=== PATIENT | male | born 1935 | race Caucasian/White ===

== ENCOUNTER 2019-07-31 06:19 | Inpatient (IN) | payer MEDICARE, BC ==
--- NOTE | 2019-07-31 06:35 | ED ---
Neuro HPI <Selvin Negron - Last Filed: 07/31/19 08:20> - History of Present Illness Is the patient presenting with stroke symptoms?: Yes Last Known Well Date: 07/30/19 Last Known Well Time: 18:00 Onset/Timin -: hour(s) <Ashley Stewart - Last Filed: 07/31/19 09:49> - General Chief Complaint: Weakness Stated Complaint: Weakness Time Seen by Provider: 07/31/19 06:26 - History of Present Illness Initial Comments: 84yo male with history of atrial fibrillation, uncontrolled DM, HTN presenting today for cc of left leg weakness, patient states that yesterday patient around 7PM when he attempted to go out of the chair he felt his left leg was weak almost causing him to fall, patient admits to tingling in the leg that has since resolved. Patient does explain how he has neuropathy of the LE b/l and has been struggling wtih ambulation the past 6 months with b/l leg weakness. Patient states for the most part this has been equal. Patient denies falls/trauma. Does not take any anticoagulation therapy. Patient denies [place], vomiting, neck pain, chest pain, SOB, arm weakness, speech changes, new visual changes, diplopia, new sensation deficits, fevers. Patient appear well on arrival, no acute distress. He is AAOx4, alert, very responsive. (Ashley Stewart) - Related Data Home Medications: Home Medications Medication Instructions Recorded Confirmed Aspirin 81 mg PO DAILY 10/28/13 07/31/19 Glimepiride [Amaryl] 4 mg PO DAILY 10/28/13 07/31/19 Metoprolol Tartrate [Lopressor] 50 mg PO BID 10/28/13 07/31/19 Naproxen [Naprosyn] 500 mg PO Q12HR PRN 10/28/13 07/31/19 Quinapril HCl [Accupril] 40 mg PO DAILY 10/28/13 07/31/19 amLODIPine BESYLATE [Norvasc] 10 mg PO DAILY 10/28/13 07/31/19 Allergies/Adverse Reactions: Allergies Allergy/AdvReac Type Severity Reaction Status Date / Time Penicillins Allergy Anaphylaxis Verified 07/31/19 07:25 Review of Systems ROS Other: All systems not noted in ROS Statement are negative. <Selvin Negron - Last Filed: 07/31/19 08:20> ROS Other: All systems not noted in ROS Statement are negative. <Ashley Stewart - Last Filed: 07/31/19 09:49> ROS Statement: Those systems with pertinent positive or pertinent negative responses have been documented in the HPI. General Exam <Ashley Stewart - Last Filed: 07/31/19 09:49> - General Exam Comments Initial Comments: General: The patient is awake and alert, in no distress Eye: +3 mm pupils are equal, round and reactive to light, extra-ocular movements are intact. No nystagmus. There is normal conjunctiva bilaterally. No signs of icterus. Ears, nose, mouth and throat: There are moist mucous membranes and no oral lesions. Neck: The neck is supple, there is no tenderness or JVD. Cardiovascular: There is a regular rate and rhythm. No murmur, rub or gallop is appreciated. Respiratory: Lungs are clear to auscultation, respirations are non-labored, breath sounds are equal. No wheezes, stridor, rales, or rhonchi. Gastrointestinal: Soft, non-distended, non-tender abdomen without masses or organomegaly noted. There is no rebound or guarding present. Musculoskeletal: Normal ROM, no tenderness. Radial pulses equal bilaterally 2+. Neurological: A&O x 3. CN II-XII intact, memory intact to immediately, intermediate and fdc recall. Able to follow simple verbal. Able to name a common object. High quality, labial and lingual speech. Low quality posterior pharynx/larynx (ga) voice sounds. Able to express general knowledge (days in a week). No hemineglect or inattention noted. Finger agnosia (-) and spatially o riented. Light touch sensation present over the face, chest, abdomen, back, UE bilaterally, and LE bilaterally. Able to localize point during point localization b/l and extinction. No visible bulk atrophy, hypertrophy, fasciculations, or myoclonus of the UE or LE b/l. Full PROM in UE and LE b/l. Bilateral muscle strength 5/5 for the following muscles: deltoid, biceps, triceps, brachioradialis, wrist extensors/flexor, hip flexor, hip abductors/adductors, hamstrings, quadriceps, feet dorsiflexors/plantar flexors. Finger to nose, finger to the examiners finger, accurate b/l. Drift noted mild of the left LE. No nuchal rigidity. Skin: Skin is warm and dry and no rashes or lesions are noted. Psychiatric: Cooperative, appropriate mood & affect, normal judgment. (Ashley Stewart) Stroke MDM - Lab Data Result diagrams: 07/31/19 06:30 07/31/19 06:30 <Selvin Negron - Last Filed: 07/31/19 08:20> - Lab Data Result diagrams: 07/31/19 06:30 07/31/19 06:30 - NIH Stroke Scale 1a. Level of Consciousness: (0) alert 1b. LOC Questions: (0) answers correctly 1c. LOC Commands: (0) performs tasks correctly 2. Best Gaze: (0) normal 3. Visual: (0) no visual loss 4. Facial Palsy: (0) normal symmetrical movement 5a. Motor Arm Left: (0) no drift 5b. Motor Arm Right: (0) no drift 6a. Motor Leg Left: (1) drift 6b. Motor Leg Right: (0) no drift 7. Limb Ataxia: (0) absent 8. Sensory: (0) normal 9. Best Language: (0) no aphasia 10. Dysarthria: (0) normal 11. Extinction/Inattention: (0) no abnormality - Thrombolytic Inclusion/Exclusion Thrombolytic Exclusion Criteria: Symptom Onset > 4.5 Hours <Ashley Stewart - Last Filed: 07/31/19 09:49> - Lab Data Lab Results 07/31/19 07/31/19 07/31/19 Range/Units 06:30 06:30 06:30 WBC 9.6 (3.8-10.6) k/uL RBC 5.30 (4.30-5.90) m/uL Hgb 16.0 (13.0-17.5) gm/dL Hct 47.9 (39.0-53.0) % MCV 90.4 (80.0-100.0) fL MCH 30.3 (25.0-35.0) pg MCHC 33.5 (31.0-37.0) g/dL RDW 13.4 (11.5-15.5) % Plt Count 221 (150-450) k/uL Neutrophils % 76 % Lymphocytes % 14 % Monocytes % 6 % Eosinophils % 2 % Basophils % 0 % Neutrophils # 7.3 (1.3-7.7) k/uL Lymphocytes # 1.4 (1.0-4.8) k/uL Monocytes # 0.6 (0-1.0) k/uL Eosinophils # 0.2 (0-0.7) k/uL Basophils # 0.0 (0-0.2) k/uL PT 10.2 (9.0-12.0) sec INR 1.0 (<1.2) APTT 24.7 (22.0-30.0) sec Sodium 141 (137-145) mmol/L Potassium 3.9 (3.5-5.1) mmol/L Chloride 108 H (98-107) mmol/L Carbon Dioxide 22 (22-30) mmol/L Anion Gap 11 mmol/L BUN 20 (9-20) mg/dL Creatinine 0.89 (0.66-1.25) mg/dL Est GFR (CKD-EPI)AfAm 90 (>60 ml/min/1.73 sqM) Est GFR (CKD-EPI)NonAf 78 (>60 ml/min/1.73 sqM) Glucose 87 (74-99) mg/dL Calcium 9.4 (8.4-10.2) mg/dL Total Bilirubin 1.4 H (0.2-1.3) mg/dL AST 28 (17-59) U/L ALT 16 (4-49) U/L Alkaline Phosphatase 80 (38-126) U/L Troponin I (0.000-0.034) ng/mL Total Protein 7.1 (6.3-8.2) g/dL Albumin 4.0 (3.5-5.0) g/dL Urine Color Urine Appearance (Clear) Urine pH (5.0-8.0) Ur Specific [place] (1.001-1.035) Urine Protein (Negative) Urine Glucose (UA) (Negative) Urine Ketones (Negative) Urine Blood (Negative) Urine Nitrite (Negative) Urine Bilirubin (Negative) Urine Urobilinogen (<2.0) mg/dL Ur Leukocyte Esterase (Negative) 07/31/19 07/31/19 Range/Units 06:30 06:30 WBC (3.8-10.6) k/uL RBC (4.30-5.90) m/uL Hgb (13.0-17.5) gm/dL Hct (39.0-53.0) % MCV (80.0-100.0) fL MCH (25.0-35.0) pg MCHC (31.0-37.0) g/dL RDW (11.5-15.5) % Plt Count (150-450) k/uL Neutrophils % % Lymphocytes % % Monocytes % % Eosinophils % % Basophils % % Neutrophils # (1.3-7.7) k/uL Lymphocytes # (1.0-4.8) k/uL Monocytes # (0-1.0) k/uL Eosinophils # (0-0.7) k/uL Basophils # (0-0.2) k/uL PT (9.0-12.0) sec INR (<1.2) APTT (22.0-30.0) sec Sodium (137-145) mmol/L Potassium (3.5-5.1) mmol/L Chloride (98-107) mmol/L Carbon Dioxide (22-30) mmol/L Anion Gap mmol/L BUN (9-20) mg/dL Creatinine (0.66-1.25) mg/dL Est GFR (CKD-EPI)AfAm (>60 ml/min/1.73 sqM) Est GFR (CKD-EPI)NonAf (>60 ml/min/1.73 sqM) Glucose (74-99) mg/dL Calcium (8.4-10.2) mg/dL Total Bilirubin (0.2-1.3) mg/dL AST (17-59) U/L ALT (4-49) U/L Alkaline Phosphatase (38-126) U/L Troponin I <0.012 (0.000-0.034) ng/mL Total Protein (6.3-8.2) g/dL Albumin (3.5-5.0) g/dL Urine Color Light Yellow Urine Appearance Clear (Clear) Urine pH 5.0 (5.0-8.0) Ur Specific [place] 1.006 (1.001-1.035) Urine Protein Negative (Negative) Urine Glucose (UA) Negative (Negative) Urine Ketones Negative (Negative) Urine Blood Negative (Negative) Urine Nitrite Negative (Negative) Urine Bilirubin Negative (Negative) Urine Urobilinogen <2.0 (<2.0) mg/dL Ur Leukocyte Esterase Negative (Negative) - Medical Decision Making 84yo male presenting today for cc of leg weakness, slight leg left drift, resolved on repeat exam. NIH initially 1--> 0. 12 hours after onset patient presented. Not TPA candidate, discussed case [facility] interventional neurologist who recommended ASA, plavix, statin, MRI if CT (-). Spoke with Dr. Arrieta who felt he may have seen a slight abnormality of MCA. CTA ordered, which does not redemonstrate abnormality. Patient will be admitted for neurology evaluation, monitoring, medical management and MRI. Patient agreeable to admission. Dr. Negron agreeable to care plan. He spoke with Dr Saul admitting provider. Dr Vidal eJffery on consult. (Ashley Stewart) Ventricular rate 88bpm, QRS duration 82ms, QT/QTc 386/467 this is atrial fibrillation, No ST elevation or depression, Some nonspecific T wave, artifact noted. 07/31/19 07:19 (Ashley Stewart) Past Medical History Past Medical History: Diabetes Mellitus, Eye Disorder, Hypertension Additional Past Medical History / Comment(s): neuropathy History of Any Multi-Drug Resistant Organisms: None Reported Past Surgical History: No Surgical Hx Reported Past Psychological History: No Psychological Hx Reported Smoking Status: Never smoker Past Alcohol Use History: None Reported Past Drug Use History: None Reported <Ashley Stewart - Last Filed: 07/31/19 09:49> Course <Selvin Negron - Last Filed: 07/31/19 08:20> <Ashley Stewart - Last Filed: 07/31/19 09:49> Vital Signs 07/31/19 07/31/19 07/31/19 06:26 06:27 06:30 Temperature 98.2 F Pulse Rate 102 H Respiratory 18 Rate Blood Pressure 174/107 174/107 O2 Sat by Pulse 97 99 90 L Oximetry 07/31/19 07/31/19 07/31/19 06:40 06:42 06:50 Temperature 98.0 F Pulse Rate 82 84 Respiratory 18 18 Rate Blood Pressure 149/82 170/85 170/85 O2 Sat by Pulse 99 96 Oximetry 07/31/19 07/31/1920 07:00 07:10 07:30 Temperature Pulse Rate 76 74 Respiratory 18 11 L Rate Blood Pressure 170/85 149/88 O2 Sat by Pulse 99 97 Oximetry 07/31/19 07/31/19 07/31/19 07:40 07:50 08:00 Temperature Pulse Rate 76 73 81 Respiratory 8 L 10 L 10 L Rate Blood Pressure 133/80 136/87 136/87 O2 Sat by Pulse 98 98 95 Oximetry 07/31/19 07/31/19 07/31/19 08:10 08:13 08:20 Temperature Pulse Rate 80 80 73 Respiratory 10 L 18 4 L Rate Blood Pressure 142/81 141/83 128/84 O2 Sat by Pulse 98 99 97 Oximetry 07/31/19 07/31/19 07/31/19 08:30 08:40 08:50 Temperature Pulse Rate 74 80 78 Respiratory 3 L 14 6 L Rate Blood Pressure 128/84 132/87 147/113 O2 Sat by Pulse 93 L 99 98 Oximetry 07/31/19 07/31/19 09:00 09:10 Temperature Pulse Rate 82 80 Respiratory 17 24 Rate Blood Pressure 147/113 133/88 O2 Sat by Pulse 97 97 Oximetry - Reevaluation(s) Reevaluation #1: Spoke with Dr Schilling in regards to patient clinical presentation--he states if CT is without abnormality initiate treatment such as plavix, ASA, Lipitor and MRI. However these is possible subtle abnormality in the Right MCA. Spoke with Dr. Arrieta radiology and will order CTA for better evaluation. 07/31/19 06:54 (Ashley Stewart) Reevaluation #2: 07/31/19 08:21 PA supervision: I proceeded [id number]-yi-[id number] evaluation patient did present with neurological symptoms consistent with a stroke. Since resolved CAT scan showed no definite occlusion. A code stroke having called initially. Recommendations are for inpatient evaluation medications local neurological consultation. The case is discussed with Dr. Epperson (Selvin Negron) Disposition <Selvin Negron - Last Filed: 07/31/19 08:20> Is patient prescribed a controlled substance at d/c from ED?: No Time of Disposition: 08:16 Decision to Admit Reason: Admit from EC Decision Date: 07/31/19 Decision Time: 08:16 <Ashley Stewart - Last Filed: 07/31/19 09:49> Clinical Impression: TIA (transient ischemic attack), Left leg weakness, History of atrial fibrillation Disposition: ADMITTED IP TO THIS HOSP Condition: Stable
[2019-07-31 06:42] LABS: Basophils % (A) 0 %; Eosinophils # (A) 0.2 k/uL (0-0.7); Eosinophils % (A) 2 %; HCT 47.9 % (39.0-53.0); Lymphocytes # (A) 1.4 k/uL (1.0-4.8); Lymphocytes % (A) 14 %; MCH 30.3 pg (25.0-35.0); MCHC 33.5 g/dL (31.0-37.0); MCV 90.4 fL (80.0-100.0); Monocytes # (A) 0.6 k/uL (0-1.0); Monocytes % (A) 6 %; Neutrophils # (A) 7.3 k/uL (1.3-7.7); Neutrophils % (A) 76 %; Platelet Count 221 k/uL (150-450); RDW 13.4 % (11.5-15.5); WBC 9.6 k/uL (3.8-10.6)
[2019-07-31 06:43] LABS: Appearance,Urine Clear (Clear); Bilirubin,Urine Negative (Negative); Blood,Urine Negative (Negative); Color,Urine Light Yellow; Glucose,Urine (UA) Negative (Negative); Ketones,Urine Negative (Negative); Leukocyte Esterase,Urine Negative (Negative); Nitrite,Urine Negative (Negative); Protein,Urine Negative (Negative); Specific Gravity,Urine 1.006 (1.001-1.035); Urobilinogen,Urine <2.0 mg/dL (<2.0)
--- NOTE | 2019-07-31 06:49 | CT ---
EXAM: CT Head Without Intravenous Contrast CLINICAL HISTORY: ITS.REASON CT Reason: Neuro deficit, acute, stroke suspected TECHNIQUE: Axial computed tomography images of the head/brain without intravenous contrast. CTDI is 49.1 mGy and DLP is 1090.4 mGy-cm. This CT exam was performed using one or more of the following dose reduction techniques: automated exposure control, adjustment of the mA and/or kV according to patient size, and/or use of iterative reconstruction technique. Coronal and sagittal reformatted images were created and reviewed. COMPARISON: No relevant prior studies available. FINDINGS: Brain: Chronic small vessel ischemic change and global volume loss. No intracranial hemorrhage. No CT evident evolving territorial infarction. No mass effect or edema. Ventricles: Enlarged ventricles secondary to involution. Bones/joints: Unremarkable. No acute fracture. Soft tissues: Unremarkable. Vasculature: Some intracranial atherosclerosis is seen. Subtle density within the right proximal MCA, question atherosclerosis versus thrombus. Clinically correlate. Consider further evaluation with CT angiogram. Sinuses: Unremarkable as visualized. No acute sinusitis. Mastoid air cells: Unremarkable as visualized. No mastoid effusion. IMPRESSION: 1. Some intracranial atherosclerosis is seen. Subtle density within the right proximal MCA, question atherosclerosis versus thrombus. Clinically correlate. Consider further evaluation with CT angiogram. 2. Chronic small vessel ischemic change and global volume loss. No intracranial hemorrhage. No CT evident evolving territorial infarction. 3. Enlarged ventricles secondary to involution. <MYCVCSECTION> Communications: 07/31/19 06:53 Call Doctor Regarding Above results, called STEW Marie on 07/30 06:53 (-04:00)
[2019-07-31 06:50] LABS: Partial Thromboplastin Time 24.7 sec (22.0-30.0); Prothrombin Time 10.2 sec (9.0-12.0)
[2019-07-31 06:51] LABS: Calcium 9.4 mg/dL (8.4-10.2); Potassium 3.9 mmol/L (3.5-5.1); Total Bilirubin 1.4 mg/dL (0.2-1.3); Total Protein 7.1 g/dL (6.3-8.2)
--- NOTE | 2019-07-31 08:02 | CT ---
EXAMINATION TYPE: CT angio head neck DATE OF EXAM: 07/31/2019 COMPARISON: None HISTORY: Rt MCA abnormality, Lt sided weakness CT DLP: 572.6 mGycm CONTRAST: Performed with IV Contrast, patient injected with 65 mL of Isovue 370. Combination Contrast CTA cervical carotids and [place] CTA cervical carotids with 3-D recons truction Contrast CTA of the cervical carotids was performed 3-D reconstruction imaging obtained at a separate workstation. Right carotid system: Mild plaque is seen of the right common carotid artery. There is mild plaque a lso noted at the carotid bulb and proximal ICA. No significant diameter reduction. ECA is patent. Right vertebral artery appears unremarkable. Left carotid system: Mild plaque is seen of the left common carotid artery. There is mild plaque als o noted at the carotid bulb and proximal ICA. No significant diameter reduction. ECA is patent. Lef t vertebral artery appears unremarkable. IMPRESSION: 1. No significant diameter reduction to account for the patient's symptoms. CTA [place] with 3-D reconstruction Contrast CTA of the [place] was performed 3-D reconstruction imaging obtained at a separate workstation. Vertebrobasilar system as well as intracranial portions of the internal carotid arteries and their ma lalitha tributaries are patent. There are sclerotic changes noted. I do not see evidence for sizable aneu rysm or vascular malformation. Please note MRI provides greater sensitivity and specificity. Visual ized brain appears grossly unremarkable. IMPRESSION: 1. Intracranial atherosclerotic changes identified without significant stenosis or aneurysm identifie d
[2019-07-31 11:43] LABS: Glucose,Whole Blood 101 mg/dL (75-99)
[2019-07-31] MEDS: CLOPIDOGREL 75 MG TAB PO SCH (12:33)
[2019-07-31] MEDS: SODIUM CHLORIDE 0.9% 1,000 ML IV SCH (12:38)
--- NOTE | 2019-07-31 13:24 | P.HPIM ---
History of Present Illness H&P Date: 07/31/19 Chief Complaint: Left sided weakness Roe Daniels, is an 84-year-old male patient of Dr. Kirsten pearl, who presented to [facility] emergency room with a chief complaint of left sided weakness. Patient stated that he was sitting in his recliner chair last night he tried to stand up around 7 PM and he was unable to get out of his chair he felt weak on the left side he was able to get up and walk a few steps later on with the help of his family he was debating whether he wanted to come to the hospital or not. He went to sleep and woke up this morning he was still feeling some weakness on the left side of his body including the left upper extremity and left lower extremity, at that point he decided to come to emergency room he called EMS and was brought into emergency room, he was evaluated in the ER code stroke was called was called in, patient was subsequently admitted to telemetry floor for further evaluation and treatment echocardiogram and carotid Doppler were ordered and neurology consultation was requested. Patient has a known history of hypertension, hyperlipidemia, [id number] diabetes mellitus, and history of retinal bleeding on the right side patient has been receiving injection in his right eye. Patient denies any previous history of stroke he denies any previous history of coronary artery disease myocardial infarction or congestive heart failure he denies any history of asthma or COPD he states he never smoked. 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 Past Anesthesia/Blood Transfusion Reactions: No Reported Reaction Smoking Status: Never smoker - Past Family History Father Family Medical History: Cancer Additional Family Medical History / Comment(s): Lung cancer Mother Family Medical History: No Reported History Medications and Allergies Home Medications Medication Instructions Recorded Confirmed Type Aspirin 81 mg PO DAILY 10/28/13 07/31/19 History Glimepiride [Amaryl] 4 mg PO DAILY 10/28/13 07/31/19 History Metoprolol Tartrate [Lopressor] 50 mg PO BID 10/28/13 07/31/19 History Naproxen [Naprosyn] 500 mg PO Q12HR PRN 10/28/13 07/31/19 History Quinapril HCl [Accupril] 40 mg PO DAILY 10/28/13 07/31/19 History amLODIPine BESYLATE [Norvasc] 10 mg PO DAILY 10/28/13 07/31/19 History Allergies Allergy/AdvReac Type Severity Reaction Status Date / Time Penicillins Allergy Anaphylaxis Verified 07/31/19 07:25 Physical Exam Vitals: Vital Signs Temp Pulse Resp BP Pulse Ox 07/31/19 09:56 80 16 133/88 97 07/31/19 09:10 80 24 133/88 97 07/31/19 09:00 82 17 147/113 97 07/31/19 08:50 78 6 L 147/113 98 07/31/19 08:40 80 14 132/87 99 07/31/19 08:30 74 3 L 128/84 93 L 07/31/19 08:20 73 4 L 128/84 97 07/31/19 08:13 80 18 141/83 99 07/31/19 08:10 80 10 L 142/81 98 07/31/19 08:00 81 10 L 136/87 95 07/31/19 07:50 73 10 L 136/87 98 07/31/19 07:40 76 8 L 133/80 98 07/31/19 07:30 74 11 L 97 07/31/19 07:10 149/88 07/31/19 07:00 76 18 170/85 99 07/31/19 06:50 84 18 170/85 96 07/31/19 06:42 98.0 F 82 18 170/85 99 07/31/19 06:40 149/82 07/31/19 06:30 174/107 90 L 07/31/19 06:27 98.2 F 102 H 18 174/107 99 07/31/19 06:26 97 Intake and Output 07/30/19 07/31/1920 22:59 06:59 14:59 Other: Weight 98.883 kg 98.883 kg In general patient is alert and oriented 3 in no apparent distress he is answering questions appropriately HEENT head normocephalic and atraumatic Neck is supple no JVD no goiter no lymphadenopathy Chest exam reveals a few scattered crackles no wheezing Cardiac exam reveals regular heart sounds no gallops no murmurs Abdomen is soft nontender no organomegaly with normal bowel sounds Extremity exam reveals no edema no cyanosis or clubbing Neurological examination reveals patient is alert and oriented 3 speech is fluent cranial nerve II-12 are intact At this time there is mild weakness on the left upper extremity and the left lower extremity as compared to the right There is no sensory deficit Results CBC & Chem 7: 07/31/19 06:30 07/31/19 06:30 Labs: Abnormal Lab Results - Last 24 Hours (Table) 07/31/19 07/31/19 Range/Units 06:30 11:43 Chloride 108 H (98-107) mmol/L POC Glucose (mg/dL) 101 H (75-99) mg/dL Total Bilirubin 1.4 H (0.2-1.3) mg/dL Thrombosis Risk Factor Assmnt - Choose All That Apply Any of the Below Risk Factors Present?: Yes Each Factor Represents 1 point: Obesity (BMI >25) Other Risk Factors: Yes Each Risk Factor Represents 2 Points: Malignancy Each Risk Factor Represents 3 Points: Age 75 years or older Other congenital or acquired thrombophilia - If yes, enter type in comment: No Thrombosis Risk Factor Assessment Total Risk Factor Score: 6 Thrombosis Risk Factor Assessment Level: High Risk Assessment and Plan Plan: #1 stroke with left sided weakness #2 underlying history of hypertension #3 underlying history of hyperlipidemia #4 underlying history of erk-opdjgzh-odeworlwg diabetes mellitus #5 recent history of right eye retinal bleeding At this time patient is admitted to telemetry floor Echocardiogram was ordered Neurology consult was requested Patient was started on Lipitor and Plavix in the emergency room will continue at this time Will monitor closely CT angiogram of the head and neck was done in the emergency room and was reviewed
--- NOTE | 2019-07-31 13:54 | P.CNNES ---
History of Present Illness Consult date: 07/31/19 Requesting physician: Ashley Stewart Reason for Consult: TIA, left leg weakness History of Present Illness: Patient is a 84-year-old right-handed male presented with chief complaint of left leg and arm weakness. Patient states that yesterday he took a nap. When he woke up at 7 PM, couldn't get up or move. He finally did make it, got up and went to the kitchen but felt was not stable. Left arm and leg felt numb. He denied any facial droop, visual disturbance or slurred speech. His symptoms were not too bad, therefore he stayed home. He went to sleep at 11 PM. When he woke up this morning, he felt symptoms were much worse. His son has to help him to get out of bed and to take him to the bathroom, otherwise he felt he could fall easily due to left leg weakness. Patient finally came to the ER today at 6:19 AM. Patient's blood pressure on arrival was 174/107, pulse rate 102, temperature 98.2. Patient underwent computed tomography scan of the head, which revealed some intracranial atherosclerosis. Subtle density within the right proximal MCA, question atherosclerosis versus thrombus. Correlate clinically. Enlarged ventricle secondary to involution. ED physician spoke to the neuro intervention shipbuilding draftsperson, who felt patient was not a candidate for TPA as his symptoms have been present for more than 4.5 hours. Patient underwent CTA of head and neck, which revealed intracranial atherosclerotic changes identified without significant stenosis or aneurysm. CTA of the neck showed no significant diameter reduction to account for patient's symptoms. He was not a candidate for any neuro intervention either. The neuro intervention recommended patient to be placed on aspirin and Plavix. Patient's EKG showed atrial fibrillation, septal infarct, age undetermined. Inferior infarct, age undetermined. Patient's blood test shows normal CBC, PT/PTT, Chem-7, liver panel and UA. Patient's hemoglobin A1c 5.6 on 02/21/2019. His total cholesterol 144, LDL 95, HDL 37 and triglycerides 57 on 02/21/2019. Patient states his left arm and left leg has improved significantly. Still slightly weak. No slurred speech. Patient states he has diabetes but is controlled. He has hypertension. Never smoked. Patient states that he used to have history of "skipped beats", does not remember having any atrial fibrillation however. Patient stated that he used to take a baby aspirin every day but stopped taking it about 6 months ago, as he did not get a new bottle once he ran out of it. At present he is not on any antiplatelet or anticoagulants prior to arrival. Patient also mentions that he has chronic back issues. He follows up with Dr. Staley, orthopedic surgery who gives him injections.. I was able to obtain report of patient's MRI of the lumbar spine performed at his office on 06/15/19, which revealed 2.5 cm right adrenal mass, not changed from the previous study of May 2009. S-shaped scoliosis and multilevel malalignment associated with moderate multilevel spondylosis. The spinal canal and neural foramina are developmentally borderline in size accentuating compressive f eatures. Multilevel spinal canal stenosis, most notably severe spinal stenosis at L2-3 and L3 4, moderate to severe spinal stenosis at L1-2, and moderate spinal canal stenosis at T11 12 with overall worsening. Left lateral recess stenosis at L5-S1, similar to prior. Multilevel foraminal stenosis most significantly moderate to severe right foraminal stenosis at L4-L5 and moderate to severe left foraminal stenosis at L3 4 with worsening. Review of Systems As mentioned above in detail. He does have some back issues. Left leg weakness. Denies any cough, fever, chills. Denies chest pain. Denies shortness of breath wheezing nausea vomiting diarrhea. 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 Past Anesthesia/Blood Transfusion Reactions: No Reported Reaction Smoking Status: Never smoker - Past Family History Father Family Medical History: Cancer Additional Family Medical History / Comment(s): Lung cancer Mother Family Medical History: No Reported History Medications and Allergies Home Medications Medication Instructions Recorded Confirmed Type Aspirin 81 mg PO DAILY 10/28/13 07/31/19 History Glimepiride [Amaryl] 4 mg PO DAILY 10/28/13 07/31/19 History Metoprolol Tartrate [Lopressor] 50 mg PO BID 10/28/13 07/31/19 History Naproxen [Naprosyn] 500 mg PO Q12HR PRN 10/28/13 07/31/19 History Quinapril HCl [Accupril] 40 mg PO DAILY 10/28/13 07/31/19 History amLODIPine BESYLATE [Norvasc] 10 mg PO DAILY 10/28/13 07/31/19 History Allergies Allergy/AdvReac Type Severity Reaction Status Date / Time Penicillins Allergy Anaphylaxis Verified 07/31/19 07:25 Physical Examination - Vital Signs Vital Signs: Vital Signs Temp Pulse Resp BP Pulse Ox 07/31/19 09:56 80 16 133/88 97 07/31/19 09:10 80 24 133/88 97 07/31/19 09:00 82 17 147/113 97 07/31/19 08:50 78 6 L 147/113 98 07/31/19 08:40 80 14 132/87 99 07/31/19 08:30 74 3 L 128/84 93 L 07/31/19 08:20 73 4 L 128/84 97 07/31/19 08:13 80 18 141/83 99 07/31/19 08:10 80 10 L 142/81 98 07/31/19 08:00 81 10 L 136/87 95 07/31/19 07:50 73 10 L 136/87 98 07/31/19 07:40 76 8 L 133/80 98 07/31/19 07:30 74 11 L 97 07/31/19 07:10 149/88 07/31/19 07:00 76 18 170/85 99 07/31/19 06:50 84 18 170/85 96 07/31/19 06:42 98.0 F 82 18 170/85 99 07/31/19 06:40 149/82 07/31/19 06:30 174/107 90 L 07/31/19 06:27 98.2 F 102 H 18 174/107 99 07/31/19 06:26 97 Intake and Output 07/30/19 07/31/1920 22:59 06:59 14:59 Other: Weight 98.883 kg 98.883 kg On examination patient is an elderly male, in no distress. Patient is alert and awake oriented to time place and person. Speech and language functions are normal. Attention and concentration and fund of knowledge is adequate. On cranial nerve examination pupils are round and reactive to light, visual torres are full on confrontation, extraocular muscles are intact. Face is symmetric, tongue protrudes to the midline. Palatal elevation sensation normal. On muscle strength testing patient has left pronator drift. The strength is normal in both arms except for bilateral deltoid which is about 4 on the right, 3+ on the left. Patient's lower extremities are normal at the hips and knees bilaterally. Right ankle and toes are normal. On the left side his ankle dorsiflexion, and inversion is normal but peronei is 4-, toe extension is 0, toe flexion 3. Reflexes are diminished and plantars are probably downgoing. Sensory touch is equal. No ataxia for [id number] testing. Tone and bulk of muscles normal. There is no carotid bruit, S1 and S2 audible. Results - Laboratory Findings CBC and BMP: 07/31/19 06:30 07/31/19 06:30 Abnormal Lab Findings: Abnormal Labs 07/31/19 07/31/19 06:30 11:43 Chloride 108 H POC Glucose (mg/dL) 101 H Total Bilirubin 1.4 H Assessment and Plan Assessment: * 84-year-old male admitted with acute onset of left-sided weakness, mainly involving the left arm and left leg, that seems to have mostly resolved. He does have baseline weakness of the left leg from previous lumbar spinal spondylosis and spinal stenosis. * Lumbar spinal stenosis, severe degree at L2-3 and L3 4 as per previous MRI from 06/15/2017. * Bilateral shoulder weakness, which could be related to arthritis/rotator cuff. Rule out spinal stenosis. * Atrial fibrillation * Hypertension Plan: * Patient had possible TIA, manifesting with left arm and leg weakness. We will check MRI of the brain to evaluate for an acute stroke. Patient has atrial fibrillation, currently not on anticoagulation. * Await 2-D echo. Suggest cardiology consultation for evaluation of atrial fibrillation, as patient would be a candidate for possible long-term anticoagulation. * MRI of the cervical spine to evaluate for spinal stenosis. * Hemoglobin A1c and fasting lipid panel. * Patient at present has been placed on aspirin 325 mg and Plavix 75 mg.
[2019-07-31 16:43] LABS: Glucose,Whole Blood 153 mg/dL (75-99)
[2019-07-31 20:51] LABS: Glucose,Whole Blood 169 mg/dL (75-99)
[2019-07-31] MEDS ORDERED: ATORVASTATIN 40 MG TAB PO SCH (21:00)
[2019-08-01 06:22] LABS: Basophils % (A) 1 %; Eosinophils # (A) 0.2 k/uL (0-0.7); Eosinophils % (A) 3 %; HCT 46.3 % (39.0-53.0); HGB 14.9 gm/dL (13.0-17.5); Lymphocytes # (A) 1.6 k/uL (1.0-4.8); Lymphocytes % (A) 19 %; MCH 29.4 pg (25.0-35.0); MCHC 32.3 g/dL (31.0-37.0); MCV 91.1 fL (80.0-100.0); Mean Platelet Volume 8.5; Monocytes # (A) 0.7 k/uL (0-1.0); Monocytes % (A) 8 %; Neutrophils # (A) 5.6 k/uL (1.3-7.7); Neutrophils % (A) 67 %; Platelet Count 228 k/uL (150-450); RBC 5.08 m/uL (4.30-5.90); RDW 13.4 % (11.5-15.5); WBC 8.4 k/uL (3.8-10.6)
[2019-08-01 06:35] LABS: Albumin 3.5 g/dL (3.5-5.0); Calcium 9.4 mg/dL (8.4-10.2); Potassium 4.8 mmol/L (3.5-5.1); Total Bilirubin 1.3 mg/dL (0.2-1.3); Total Protein 6.5 g/dL (6.3-8.2)
[2019-08-01 06:40] LABS: Glucose,Whole Blood 89 mg/dL (75-99)
[2019-08-01] MEDS: SODIUM CHLORIDE 0.9% 1,000 ML IV SCH (08:42)
[2019-08-01] MEDS: CLOPIDOGREL 75 MG TAB PO SCH (08:42)
[2019-08-01 08:51] VITALS: RESP 18
[2019-08-01] MEDS ORDERED: ASPIRIN 325 MG TAB PO SCH (09:00)
--- NOTE | 2019-08-01 09:00 | ECHOF ---
Referral Reason:stroke MEASUREMENTS -------- HEIGHT: 180.3 cm WEIGHT: 95.3 kg BP: RVIDd: 3.1 cm (< 3.3) IVSd: 1.9 cm (0.6 - 1.1) LVIDd: 3.3 cm (3.9 - 5.3) LVPWd: 1.8 cm (0.6 - 1.1) IVSs: 2.5 cm LVIDs: 1.9 cm LVPWs: 2.1 cm Ao Diam: 3.7 cm (2.0 - 3.7) AV Cusp: 2.1 cm (1.5 - 2.6) LA Diam: 3.8 cm (2.7 - 3.8) MV EXCURSION: 8.677 mm (> 18.000) MV EF SLOPE: 67 mm/s (70 - 150) EPSS: 0.9 cm MV E Uday: 0.99 m/s MV DecT: 215 ms MV A Uday: 0.30 m/s MV E/A Ratio: 3.32 AR PHT: 869 ms RAP: 5.00 mmHg RVSP: 27.00 mmHg FINDINGS -------- Undetermined rhythm. This was a technically difficult study with suboptimal views. The left ventricular size is normal. There is severe concentric left ventricular hypertrophy. Ove rall left ventricular systolic function is normal with, an EF between 55 - 60 %. The right ventricle is normal in size. The left atrial size is normal. The right atrial size is normal. Lumason used There is mild aortic valve sclerosis. There is mild aortic regurgitation. Mild mitral annular calcification present. Mild mitral regurgitation is present. The tricuspid valve appears structurally normal. Trace tricuspid regurgitation present. Right noe tricular systolic pressure is normal at < 35 mmHg. The pulmonic valve was not well visualized. There is no pulmonic regurgitation present. The aortic root size is normal. IVC Not well visulized. There is no pericardial effusion. CONCLUSIONS -------- 1. This was a technically difficult study with suboptimal views. 2. There is severe concentric left ventricular hypertrophy. 3. Overall left ventricular systolic function is normal with, an EF between 55 - 60 %. 4. The left atrial size is normal. 5. Lumason used 6. There is mild aortic valve sclerosis. 7. There is mild aortic regurgitation. 8. Mild mitral annular calcification present. 9. Mild mitral regurgitation is present. 10. Trace tricuspid regurgitation present. HEALTHCARE ECONOMICS MANAGER: Mary Liao RDCS
[2019-08-01] MEDS ORDERED: ACETAMINOPHEN TAB 325 MG TAB PO PRN (09:36)
[2019-08-01] MEDS ORDERED: amLODIPine 10 MG TAB PO SCH (09:45)
[2019-08-01] MEDS ORDERED: LISINOPRIL 20 MG TAB PO SCH (09:45)
[2019-08-01] MEDS ORDERED: GLIMEPIRIDE 4 MG TAB PO SCH (09:45)
[2019-08-01] MEDS ORDERED: METOPROLOL TARTRATE 50 MG TAB PO SCH (09:45)
[2019-08-01 11:10] VITALS: BP 157/95; PULSE 98; TEMP 98.2
--- NOTE | 2019-08-01 11:10 | MR ---
EXAMINATION TYPE: MR brain/cspine wo DATE OF EXAM: 08/01/2019 COMPARISON: CT brain 07/31/2019 HISTORY: Lt sided weakness; possible CVA/spinal stenosis CONTRAST: Performed utilizing 0 mL intravenous Gadavist gadolinium contrast. TECHNIQUE: Multiplanar, multiecho imaging on a 3.0 [place] magnet is performed through the brain. Stud y is performed within 24 hours of arrival to the hospital. The craniovertebral junction is normal. The pituitary is normal. Diffusion-weighted imaging is performed. There is a focal hyperintensity within the posterior right centrum semiovale compatible with acute ischemic change. This extends towards the periventricular reg ion of the posterior right lateral ventricle. No additional suspicious hyperintensities are identifie d. There are areas of hyperintensity on T2 and inversion recovery weighted sequences in the periventricu lar white matter compatible with microvascular ischemic change. Ventricles and sulci are very prominent for the patient age. IMPRESSIONS: 1. Acute ischemic change within the deep white matter of the right centrum semiovale extending toward s the posterior right lateral ventricle 2. Chronic appearing periventricular white matter ischemic changes some age related atrophy. EXAMINATION TYPE: MR brain/cspine wo DATE OF EXAM: 08/01/2019 COMPARISON: None HISTORY: Lt sided weakness; possible CVA/spinal stenosis CONTRAST: Performed utilizing 0 mL intravenous Gadavist gadolinium contrast. TECHNIQUE: Multiplanar multiecho imaging on a 3.0 [place] magnet is performed through the cervical spin e. FINDINGS: The craniovertebral junction is normal. Vertebral body alignment is normal. There is disc desiccation throughout the cervical spine. Some disc space narrowing is present CT 45 C 5-6. C5-6: Some broad-based disc bulge is present with moderate anterior thecal sac compression. This may have contact with the spinal cord. AP spinal canal stenosis is not present. Neural foramen have uncov ertebral joint hypertrophy narrowing bilaterally. Broad-based disc bulge is present C4-C5 with moderate anterior thecal sac compression. This comes in close approximation with the spinal cord. Bilateral foraminal narrowing from uncovertebral joint hype rtrophy is present. IMPRESSIONS: 1. Disc bulging C4-5 C5-6 with moderate anterior thecal sac compression. Some cord contact without de formity at C5-6 may be present. 2. Disc desiccation
--- NOTE | 2019-08-01 11:36 | P.CRDCN ---
History of Present Illness Consult date: 08/01/19 Requesting physician: Trey Epperson Consult reason: atrial fibrillation Chief complaint: Left-sided weakness History of present illness: This is a pleasant 84 year old gentleman who used to follow with Dr. Yusuf in the office, subsequent to that he states he did follow with another stone banker but was unsure of the name, he has a history of hypertension, hyperlipidemia, diabetes, neuropathy in his bilateral lower extremities, chronic back pain, he states he also has a history of having a loop recorder in the past, according to him he states and CARIN Magaña removed it and they found nothing of significance from what he recalls. Told several years ago in the past prior to moving to [place] that he did have a skipped beat occasionally. He also states that recently he underwent some pain injection for his back, and the anesthesiologist told him at that time that he had an irregular heartbeat on the monitor. He followed up with a stone banker after that, also had a 24-hour Holter monitor according to the patient, which did not reveal any irregularity of heartbeat other than a skipped beat. He presents to the hospital on this occasion with symptoms of left leg and left arm weakness. He states it was very hard for him to get up or to even move. He had no difficulty speaking, no difficulty with his vision. He finally was able to walk, even took a walk ultimately in his driveway with his son, but continued to have been noted weakness in his left arm and left leg. His blood pressure on arrival to the emergency room was 174/107 with a heart rate of 102, afebrile. CT of the head was performed which revealed some intracranial atherosclerosis. Subtle density within the right proximal MCA, questionable athero-sclerosis versus thrombus. The emergency room physician did speak with the neuro intervention s iron worker who felt that the patient was not a candidate for TPA as his symptoms had been present for more than 4-1/2 hours. He underwent a CTA of the head and neck which revealed intracranial atherosclerotic changes without any significant stenosis or aneurysm. CTA of the neck showed no significant diameter reduction to account for patient's symptoms. His EKG on presentation here showed atrial fibrillation. Blood pressure this morning 157/90 with a heart rate in the 90s. Laboratory data was reviewed white blood cell count 8.4, hemoglobin 14.9, dwight telet count 228. Sodium 139, potassium 4.8, BUN 16, creatinine 0.9. AST and ALT are normal, troponin 0.012. At the time of my examination, the patient continues to be in atrial fibrillation, his heart rate is under adequate control. He has been seen in consultation by neurology who felt that the patient likely had a possible TIA, MRI was performed which is yet pending. At the time of my examination, patient continues to have mild weakness in his left arm and leg, but much improved from admission here. 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 Past Anesthesia/Blood Transfusion Reactions: No Reported Reaction Smoking Status: Never smoker - Past Family History Father Family Medical History: Cancer Additional Family Medical History / Comment(s): Lung cancer Mother Family Medical History: No Reported History Medications and Allergies Home Medications Medication Instructions Recorded Confirmed Type Aspirin 81 mg PO DAILY 10/28/13 07/31/19 History Glimepiride [Amaryl] 4 mg PO DAILY 10/28/13 07/31/19 History Metoprolol Tartrate [Lopressor] 50 mg PO BID 10/28/13 07/31/19 History Naproxen [Naprosyn] 500 mg PO Q12HR PRN 10/28/13 07/31/19 History Quinapril HCl [Accupril] 40 mg PO DAILY 10/28/13 07/31/19 History amLODIPine BESYLATE [Norvasc] 10 mg PO DAILY 10/28/13 07/31/19 History Allergies Allergy/AdvReac Type Severity Reaction Status Date / Time Penicillins Allergy Anaphylaxis Verified 07/31/19 07:25 Physical Exam Vitals: Vital Signs Temp Pulse Pulse Resp BP BP Pulse Ox 04/09/20 11:05 98.2 F 98 18 157/95 98 08/01/19 08:00 97.9 F 120 H 18 134/73 96 08/01/19 03:46 98.2 F 86 16 157/87 96 08/01/19 00:00 98.1 F 97 16 124/70 97 07/31/19 23:13 98.1 F 78 16 124/70 97 07/31/19 20:20 98.3 F 79 18 148/71 96 07/31/19 16:00 80 18 141/72 99 07/31/19 12:00 97.9 F 88 16 146/82 99 Intake and Output 07/31/19 08/01/19 08/01/19 22:59 06:59 14:59 Intake Total 236 240 Output Total 400 Balance -164 240 Intake: Oral 236 240 Output: Urine 400 Other: Voiding Method Urinal Toilet Toilet Urinal Urinal # Voids 1 PHYSICAL EXAMINATION: GENERAL: 84-year-old gentleman in no acute distress at the time of my examination HEENT: Head is atraumatic, normocephalic. Pupils equal, round. Sclera anicteric. Conjunctiva are clear. Mucous membranes of the mouth are moist. Neck is supple. There is no elevated jugular venous pressure. No carotid bruit is heard. HEART EXAMINATION: Heart S1 and S2 irregularly irregular CHEST EXAMINATION:[ Lungs are clear to auscultation and precussion. No chest wall tenderness is noted on palpation or with deep breathing.] ABDOMEN: [ Soft, nontender. Bowel sounds are heard. No organomegaly noted]. EXTREMITIES:[ 2+ peripheral pulses with no evidence of peripheral edema and no calf tenderness noted]. 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 Results 08/01/19 05:38 08/01/19 05:38 Cardiac Enzymes 08/01/19 Range/Units 05:38 AST 27 (17-59) U/L Lipids 08/01/19 Range/Units 05:38 Triglycerides 102 (<150) mg/dL Cholesterol 133 (<200) mg/dL HDL Cholesterol 31 L (40-60) mg/dL CBC 08/01/19 Range/Units 05:38 WBC 8.4 (3.8-10.6) k/uL RBC 5.08 (4.30-5.90) m/uL Hgb 14.9 (13.0-17.5) gm/dL Hct 46.3 (39.0-53.0) % Plt Count 228 (150-450) k/uL Comprehensive Metabolic Panel 08/01/19 Range/Units 05:38 Sodium 139 (137-145) mmol/L Potassium 4.8 (3.5-5.1) mmol/L Chloride 107 (98-107) mmol/L Carbon Dioxide 25 (22-30) mmol/L BUN 16 (9-20) mg/dL Creatinine 0.92 (0.66-1.25) mg/dL Glucose 86 (74-99) mg/dL Calcium 9.4 (8.4-10.2) mg/dL AST 27 (17-59) U/L ALT 14 (4-49) U/L Alkaline Phosphatase 67 (38-126) U/L Total Protein 6.5 (6.3-8.2) g/dL Albumin 3.5 (3.5-5.0) g/dL Current Medications Generic Name Dose Route Start Last Admin Trade Name Freq PRN Reason Stop Dose Admin Acetaminophen 650 mg 08/01/19 09:36 Tylenol Tab PO Q4HR PRN Fever and/ or Pain Amlodipine Besylate 10 mg 08/01/19 09:45 08/01/19 10:59 Norvasc PO 10 mg DAILY MEG Administration Aspirin 325 mg 08/01/19 09:00 08/01/19 08:42 Aspirin PO 325 mg DAILY MEG Administration Atorvastatin Calcium 40 mg 07/31/19 21:00 07/31/19 20:02 Lipitor PO 40 mg HS MEG Administration Clopidogrel Bisulfate 75 mg 07/31/19 10:00 08/01/19 08:42 Plavix PO 75 mg DAILY MEG Administration Glimepiride 4 mg 08/01/19 09:[address] [facility] Sodium Chloride 1,000 mls @ 20 mls/hr 07/31/19 08:15 08/01/19 08:42 Saline 0.9% IV Not Given .Q24H MEG Lisinopril 40 mg 08/01/19 09:45 08/01/19 11:00 Zestril PO 40 mg DAILY MEG Administration Metoprolol Tartrate 50 mg 08/01/19 09:45 08/01/19 11:00 Lopressor PO 50 mg BID MEG Administration Intake and Output 07/31/19 08/01/19 08/01/19 22:59 06:59 14:59 Intake Total 236 240 Output Total 400 Balance -164 240 Intake: Oral 236 240 Output: Urine 400 Other: Voiding Method Urinal Toilet Toilet Urinal Urinal # Voids 1 08/01/19 05:38 08/01/19 05:38 EKG Interpretations (text) EKG shows atrial fibrillation with nonspecific ST-T wave changes Assessment and Plan Plan: Assessment and plan #1 symptoms of left-sided weakness involving the left arm and left leg, mostly resolved this morning. Possible TIA. #2 atrial fibrillation, not currently on anticoagulation, appears to be of new onset for the patient #3 hypertension #4 hyperlipidemia #5 diabetes #6 lumbar spinal stenosis, with baseline weakness of the left and right leg, chronic Plan An echocardiogram with Doppler study has been performed which revealed an ejection fraction of 55-60% mitral and mild aortic regurgitation. The patient has been educated regarding the importance of anticoagulation for stroke prevention. We will check with neurology regarding starting the patient on anticoagulation. We will also obtain the patient's records from the office on his prior 24-hour monitor and loop recorder findings. Check a TSH level. Further recommendations to follow. DNP note has been reviewed, I agree with a documented findings and plan of care. Patient was seen and examined.
[2019-08-01] MEDS ORDERED: APIXABAN 5 MG TAB PO SCH (12:00)
[2019-08-01 12:15] LABS: Glucose,Whole Blood 129 mg/dL (75-99)
[2019-08-01 14:08] LABS: Hemoglobin A1C 5.2 % (4.0-6.0)
--- NOTE | 2019-08-01 14:34 | P.PN ---
Subjective Progress Note Date: 08/01/19 Patient denies any focal symptoms. All symptoms have resolved. Objective - Vital Signs Vital signs: Vital Signs Temp 98.2 F 08/01/19 11:05 Pulse 98 08/01/19 11:05 Resp 18 08/01/19 11:05 BP 157/95 08/01/19 11:05 Pulse Ox 98 08/01/19 11:05 Intake & Output 07/31/19 08/01/19 08/01/19 18:59 06:59 18:59 Intake Total 472 480 Output Total 875 400 Balance -403 -400 480 Weight 98.883 kg Intake: Oral 472 480 Output: Urine 875 400 Other: Voiding Method Toilet Toilet Urinal Urinal # Voids 1 - Exam Patient's mental status, speech and language are normal. Muscles normal. Left foot still weak mainly involving the left toe extension, left toe flexion and peroneal muscles. Left hip flexion is normal. - Labs CBC & Chem 7: 08/01/19 05:38 08/01/19 05:38 Labs: Abnormal Lab Results - Last 24 Hours (Table) 07/31/19 07/31/19 08/01/19 Range/Units 16:42 20:49 05:38 POC Glucose (mg/dL) 153 H 169 H (75-99) mg/dL HDL Cholesterol 31 L (40-60) mg/dL 08/01/19 Range/Units 11:41 POC Glucose (mg/dL) 129 H (75-99) mg/dL HDL Cholesterol (40-60) mg/dL Assessment and Plan Assessment: * 84-year-old male admitted with acute onset of left-sided weakness, mainly involving the left arm and left leg, that seems to have mostly resolved. He does have baseline weakness of the left leg from previous lumbar spinal spondylosis and spinal stenosis. * Lumbar spinal stenosis, severe degree at L2-3 and L3 4 as per previous MRI from 06/15/2017. * Bilateral shoulder weakness, which could be related to arthritis/rotator cuff. Rule out spinal stenosis. * Atrial fibrillation * Hypertension Plan: * MRI of the brain revealed acute ischemic stroke within the deep white matter of the right centrum semiovale, extending toward the posterior right lateral ventricle. Likely embolic in nature. * 2-D echo revealed severe concentric LVH, EF 55-60%. Mild aortic valve sclero sis. Left atrial size normal. Cardiology see the patient, and patient started on aspirin 81 mg daily and Apixaban 5 mg twice a day. * MRI of the cervical spine revealed disc bulging C4 5, C5 6 with moderate anterior thecal sac compression. Some cord contact without deformity at C5 6 may be present. On my review, it is at least moderate to severe spinal stenosis at C4 5 level. There is also evidence of spondylolisthesis. Patient recommended to follow up with his orthopedic surgeon. Patient states that his orthopedic surgeon is already aware of spinal stenosis in his neck and low back. He was previously felt not a candidate for surgery because of his age. * Hemoglobin A1c 5.2 and fasting lipid panel showed cholesterol 133, LDL 82, HDL 31 and triglycerides 102. * Neurologically clear for discharge.
--- NOTE | 2019-08-01 15:11 | P.DS ---
Providers Date of admission: 08/01/19 13:02 Expected date of discharge: 08/01/19 Attending physician: Trey Epperson Consults: 07/31/19 08:13 Consult Physician Routine Consulting Provider: Debbie Jeffery Consult Reason/Comments: TIA, left leg weakness that resolved Do you want consulting provider notified?: Yes 08/01/19 09:33 Consult Physician Routine Consulting Provider: Odalys Magaña Consult Reason/Comments: history of atrial fibrillation Do you want consulting provider notified?: Yes Primary care physician: Mercedes Coto Hospital Course: Diagnosis on discharge: 1. Stroke with left sided weakness. Symptoms lasting more than 24 hours, actually patient is still have some weakness on the left side at the time of discharge, he was offered rehab however he chose to go home. 2. Paroxysmal atrial fibrillation, patient states that he has been having few episodes of atrial fibrillation very sporadically, he knew about this since 35 years ago per patient, he was never put on anticoagulation in the past, however now in view of new stroke, recommendation by cardiology and neurology is to proceed with anticoagulation with Eliquis, prescription was given to patient pharmacy has checked for coverage, and Eliquis was not covered by his insurance, his monthly cost would be around $400, he was given a 30 day coupon, he was told to follow up with his primary care physician's office and with cardiology office as soon as possible, either to obtain a prior authorization from his insurance, or to find an alternative medication. 3. Underlying history of hypertension well-controlled on medications 4. Hyperlipidemia patient given a prescription for Lipitor 40 mg daily 5. Underlying history of [id number] diabetes Jeovanny's 6. History of retinal bleeding. Hospital course: Roe Daniels, is an 84-year-old male patient of Dr. Kirsten coto, who presented to [facility] emergency room with a chief complaint of left sided weakness. Patient stated that he was sitting in his recliner chair last night he tried to stand up around 7 PM and he was unable to get out of his chair he felt weak on the left side he was able to get up and walk a few steps later on with the help of his family he was debating whether he wanted to come to the hospital or not. He went to sleep and woke up this morning he was still feeling some weakness on the left side of his body including the left upper extremity and left lower extremity, at that point he decided to come to emergency room he called EMS and was brought into emergency room, he was evaluated in the ER code stroke was called was called in, patient was subsequently admitted to telemetry floor for further evaluation and treatment echocardiogram and carotid Doppler were ordered and neurology consultation was requested. Patient has a known history of hypertension, hyperlipidemia, hku-uxyxtzj-wqnsesher diabetes mellitus, and history of retinal bleeding on the right side patient has been receiving injection in his right eye. Patient denies any previous history of stroke he denies any previous history of coronary artery disease myocardial infarction or congestive heart failure he denies any history of asthma or COPD he states he never smoked. On 08/01/2019 patient was seen and examined on the telemetry floor he is alert and oriented 3 in no apparent distress, he is still feeling some weakness on the left side involving the left upper extremity and the left lower extremity, there is minimal difference between the right side and the left side strength on physical exam. He was evaluated by cardiology and by neurology, patient has paroxysmal atrial fibrillation which she knew about for 35 years per patient however he was never on anticoagulation in the past. In view of the new stroke patient will need to be on anticoagulation he was given a prescription for Eliquis 5 mg by mouth twice daily, pharmacy did insurance coverage inquiry and the medication is not covered on his insurance, he was given a coupon for 30 day free pills. He will need to follow up with his primary care physician's office and with cardiology office to obtain insurance prior authorization or to find an alternative to and the course . Patient was also given a prescription for Lipitor 40 mg by mouth once daily otherwise continue same medications as prior 2 admissions. Patient has a known history of retinal bleed he had multiple injections in his eye in the recent past he was instructed to stop anticoagulation and follow-up as soon as possible with his eye doctor if he is having any significant change in his vision Patient Condition at Discharge: Stable Plan - Discharge Summary Discharge Rx Participant: No New Discharge Prescriptions: New Apixaban [Eliquis] 5 mg PO BID tab Atorvastatin [Lipitor] 40 mg PO HS tab Continue amLODIPine BESYLATE [Norvasc] 10 mg PO DAILY Quinapril HCl [Accupril] 40 mg PO DAILY Metoprolol Tartrate [Lopressor] 50 mg PO BID Glimepiride [Amaryl] 4 mg PO DAILY Aspirin 81 mg PO DAILY Discontinued Naproxen [Naprosyn] 500 mg PO Q12HR PRN PRN Reason: Pain Discharge Medication List Aspirin 81 mg PO DAILY 10/28/13 [History] Glimepiride [Amaryl] 4 mg PO DAILY 10/28/13 [History] Metoprolol Tartrate [Lopressor] 50 mg PO BID 10/28/13 [History] Quinapril HCl [Accupril] 40 mg PO DAILY 10/28/13 [History] amLODIPine BESYLATE [Norvasc] 10 mg PO DAILY 10/28/13 [History] Apixaban [Eliquis] 5 mg PO BID tab 08/01/19 [Rx] Atorvastatin [Lipitor] 40 mg PO HS tab 08/01/19 [Rx] Follow up Appointment(s)/Referral(s): Mercedes Coto MD [Primary Care Provider] - 08/07/19 10:15 am (Telephone appointment, office will call you at appointment time. Check with primary about a referral to a neurologist outpatient. ) Patient Instructions/Handouts: Transient Ischemic Attack (DC), Heart Healthy Diet (DC) Activity/Diet/Wound Care/Special Instructions: CVA/TIA 1. Call your physician with any worsening symptoms of stroke such as, increased weakness, new numbness or tingling, mental status changes, visual changes or new loss of sensation. 2. Stroke prevention methods include lowering cholesterol, thinning your blood, preventing high blood pressure, keeping tight control of your diabetes, increasing exercise/activity, smoking cessation and alcohol cessation.
[2019-08-02] MEDS ORDERED: ASPIRIN 81 MG PO SCH (09:00)
== END 2019-08-01 16:20 | disposition home or self-care (01) | DRG 65 ==
LOC: EC 06:19 → 3SCARD 08:19 → OBSVTOIN 08-01 13:02
PROVIDERS: ADMIT Internal Medicine; ATTEND Internal Medicine
DX: I63.40 Cerebral infarction due to embolism of unspecified cerebral artery (principal); G81.94 Hemiplegia, unspecified affecting left nondominant side; I11.9 Hypertensive heart disease without heart failure; E11.42 Type 2 diabetes mellitus with diabetic polyneuropathy; I67.2 Cerebral atherosclerosis; M48.04 Spinal stenosis, thoracic region; R29.701 NIHSS score 1; I48.0 Paroxysmal atrial fibrillation; E78.5 Hyperlipidemia, unspecified; K21.9 Gastro-esophageal reflux disease without esophagitis; H53.8 Other visual disturbances; G89.29 Other chronic pain; M51.26 Other intervertebral disc displacement, lumbar region; M51.36 Other intervertebral disc degeneration, lumbar region; E66.9 Obesity, unspecified; E27.9 Disorder of adrenal gland, unspecified; M47.896 Other spondylosis, lumbar region; M41.9 Scoliosis, unspecified; M48.061 Spinal stenosis, lumbar region without neurogenic claudication; I08.0 Rheumatic disorders of both mitral and aortic valves; M19.012 Primary osteoarthritis, left shoulder; M19.011 Primary osteoarthritis, right shoulder; M48.07 Spinal stenosis, lumbosacral region; R40.2362 Coma scale, best motor response, obeys commands, at arrival to emergency department; R40.2142 Coma scale, eyes open, spontaneous, at arrival to emergency department; R40.2252 Coma scale, best verbal response, oriented, at arrival to emergency department; Z68.31 Body mass index [BMI] 31.0-31.9, adult; Z59.7 Insufficient social insurance and welfare support; Z79.899 Other long term (current) drug therapy; Z79.84 Long term (current) use of oral hypoglycemic drugs; Z86.69 Personal history of other diseases of the nervous system and sense organs; Z85.828 Personal history of other malignant neoplasm of skin; Z98.890 Other specified postprocedural states; Z98.42 Cataract extraction status, left eye; Z98.41 Cataract extraction status, right eye; Z96.1 Presence of intraocular lens; Z88.0 Allergy status to penicillin; Z80.1 Family history of malignant neoplasm of trachea, bronchus and lung
CPT/HCPCS: 36415; 70450; 70496; 70498; 70551; 72141; 80053; 80061; 81003; 83036; 84443; 84484; 85025; 85610; 85730; 93005; 93306; 99285

== ENCOUNTER → 2019-10-16 | Outpatient (CLI) | payer MEDICARE, BC ==
[2019-10-16 14:55] LABS: HCT 50.4 % (39.0-53.0); HGB 16.3 gm/dL (13.0-17.5); MCH 30.6 pg (25.0-35.0); MCHC 32.4 g/dL (31.0-37.0); MCV 94.4 fL (80.0-100.0); Mean Platelet Volume 8.2; Platelet Count 277 k/uL (150-450); RBC 5.33 m/uL (4.30-5.90); RDW 13.1 % (11.5-15.5); WBC 10.4 k/uL (3.8-10.6)
[2019-10-16 20:42] LABS: African American GFR (CKD) 70.1 (60.0-200.0); Anion Gap 7.7 mmol/L (4.00-12.00); BUN/Creat Ratio 18.18 Ratio (12.00-20.00); Calcium 9.7 mg/dL (8.7-10.3); Carbon Dioxide 25.3 mmol/L (21.6-31.8); Non-African American GFR(CKD) 60.5 (60.0-200.0); Potassium 4.8 mmol/L (3.5-5.5)
== END | disposition home or self-care (01) ==
LOC: LABWHC1 14:26
PROVIDERS: ATTEND Internal Medicine Interventional Cardiology
DX: N18.9 Chronic kidney disease, unspecified (principal); I25.10 Atherosclerotic heart disease of native coronary artery without angina pectoris
CPT/HCPCS: 36415; 80048; 84443; 85027

== ENCOUNTER 2020-02-25 17:39 | Emergency (ER) | payer MEDICARE, BC ==
[2020-02-25 18:00] VITALS: RESP 18; TEMP 97.8
[2020-02-25] MEDS ORDERED: DIPH,PERTUS(ACELL)TETVAC-LF 0.5 ML VIAL IM ONE (18:11)
--- NOTE | 2020-02-25 18:19 | ED ---
General Adult HPI - General Chief complaint: Fall Stated complaint: Fall head/face unjury Time Seen by Provider: 02/25/20 18:07 Source: patient, family, RN notes reviewed Mode of arrival: wheelchair Limitations: no limitations - History of Present Illness Initial comments: Patient is a pleasant 84-year-old male presenting to the emergency department following a fall. Incident occurred around 1:00 today. Patient was bending over and then fell. Patient did fall onto some weeds with spent underneath. Patient did strike the right side of his forehead. Patient did not lose consciousness. No syncope. No weakness. Only minimal discomfort. Patient does have swelling. Unclear last tetanus immunization. No speech problems or weakness. No confusion. Patient is on Eliquis secondary to history of stroke. - Related Data Home Medications Medication Instructions Recorded Confirmed Glimepiride [Amaryl] 4 mg PO DAILY 10/28/13 02/25/20 Metoprolol Tartrate [Lopressor] 50 mg PO BID 10/28/13 02/25/20 Quinapril HCl [Accupril] 40 mg PO DAILY 10/28/13 02/25/20 amLODIPine BESYLATE [Norvasc] 10 mg PO DAILY 10/28/13 02/25/20 Previous Rx's Medication Instructions Recorded Apixaban [Eliquis] 5 mg PO BID tab 08/01/19 Atorvastatin [Lipitor] 40 mg PO HS tab 08/01/19 Allergies Allergy/AdvReac Type Severity Reaction Status Date / Time Penicillins Allergy Anaphylaxis Verified 02/25/20 18:53 Review of Systems ROS Statement: Those systems with pertinent positive or pertinent negative responses have been documented in the HPI. ROS Other: All systems not noted in ROS Statement are negative. Constitutional: Denies: fever Eyes: Denies: eye pain ENT: Denies: ear pain Respiratory: Denies: cough Cardiovascular: Denies: chest pain Endocrine: Denies: fatigue Gastrointestinal: Denies: abdominal pain Genitourinary: Denies: dysuria Musculoskeletal: Denies: back pain Skin: Denies: rash Neurological: Reports: as per HPI. 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 Past Anesthesia/Blood Transfusion Reactions: No Reported Reaction Past Psychological History: No Psychological Hx Reported Smoking Status: Never smoker Past Alcohol Use History: None Reported Past Drug Use History: None Reported - Past Family History Father Family Medical History: Cancer Additional Family Medical History / Comment(s): Lung cancer Mother Family Medical History: No Reported History General Exam Limitations: no limitations General appearance: alert, in no apparent distress Head exam: Present: other (Minimal abrasions right forehead. Moderate swelling right eyebrow with mild tenderness) Eye exam: Present: normal appearance, PERRL, EOMI. Absent: nystagmus ENT exam: Present: normal oropharynx Neck exam: Present: normal inspection. Absent: tenderness Respiratory exam: Present: normal lung sounds bilaterally Cardiovascular Exam: Present: regular rate, normal rhythm GI/Abdominal exam: Present: soft. Absent: tenderness Extremities exam: Present: normal inspection, full ROM. Absent: tenderness Neurological exam: Present: alert, oriented X3, CN II-XII intact. Absent: motor sensory deficit Expanded Neurological exam: Present: protecting the airway Speech: Present: fluid speech Cranial nerves: EOM's Intact: Normal, Facial Sensation: Normal Sensory exam: Upper Extremity Light Touch: Normal, Lower Extremity Light Touch: Normal Motor strength exam: RUE: 5, LUE: 5, RLE: 5, LLE: 5 Eye Response: (4) open spontaneously Motor Response: (6) obeys commands Verbal Response: (5) oriented Psychiatric exam: Present: normal affect, normal mood Skin exam: Present: abrasion Course Vital Signs 02/25/20 17:56 Temperature 97.8 F Pulse Rate 70 Respiratory 18 Rate Blood Pressure 154/86 O2 Sat by Pulse 99 Oximetry Medical Decision Making - Medical Decision Making Patient reevaluated and resting comfortably in bed. Patient and family updated. - Radiology Data Radiology results: report reviewed (Computed tomography scan of the brain shows right periorbital hematoma. No acute intercranial abnormality.) Disposition Clinical Impression: Fall, Head injury Disposition: HOME SELF-CARE Condition: Stable Instructions (If sedation given, give patient instructions): Head Injury (ED) Additional Instructions: Hold blood thinners for the next 24 hours. Return for confusion, pain, weakness, worsening or changing symptoms or other concerns. Is patient prescribed a controlled substance at d/c from ED?: No Referrals: Mercedes Coto MD [Primary Care Provider] - 1-2 days Time of Disposition: 19:08
--- NOTE | 2020-02-25 18:49 | CT ---
EXAMINATION TYPE: CT brain wo con DATE OF EXAM: 02/25/2020 COMPARISON: 07/31/2019 HISTORY: Ground level fall on blood thinners. Right orbital bruising. CT DLP: 1084.4 mGycm Automated exposure control for dose reduction was used. There is cerebral cortical atrophy. There is no mass effect nor midline shift. There is no sign of in tracranial hemorrhage. The calvarium is intact. There is right side periorbital hematoma. IMPRESSION: Cerebral atrophy. No acute intracranial abnormality. Right periorbital hematoma. Brain unchanged comp ared to old exam.
[2020-02-25 19:31] VITALS: BP 145/88; PULSE 74
== END 2020-02-25 19:32 | disposition home or self-care (01) ==
LOC: EC 17:39
DX: S00.81XA Abrasion of other part of head, initial encounter (principal); I10 Essential (primary) hypertension; E11.40 Type 2 diabetes mellitus with diabetic neuropathy, unspecified; Z79.84 Long term (current) use of oral hypoglycemic drugs; Z79.899 Other long term (current) drug therapy; Z88.0 Allergy status to penicillin; Z85.828 Personal history of other malignant neoplasm of skin; Z23 Encounter for immunization; W18.39XA Other fall on same level, initial encounter; Y93.89 Activity, other specified; Y92.89 Other specified places as the place of occurrence of the external cause; Z86.73 Personal history of transient ischemic attack (TIA), and cerebral infarction without residual deficits
CPT/HCPCS: 70450; 90471; 90715; 99283